=== PATIENT | male | born 1965 | race Caucasian/White ===

== ENCOUNTER 2016-12-21 11:38 | Observation (INO) ==
[2016-12-21] MEDS ORDERED: ASPIRIN 325 MG TABLET PO STA (12:10)
[2016-12-21] MEDS ORDERED: MORPHINE 2 MG/1 ML SYRINGE IV STA (12:10)
[2016-12-21] MEDS ORDERED: ONDANSETRON 4 MG/2 ML VIAL IV STA (12:10)
[2016-12-21] MEDS ORDERED: METOPROLOL TARTRATE 25 MG TABLET PO STA (12:10)
[2016-12-21] MEDS ORDERED: NITROGLYCERIN 2% OINT 1 INCH/GM PACK TOP STA (12:10)
[2016-12-21] MEDS ORDERED: ALUM/MAG/SIMETH/LIDO VISC 1:1 30 ML BOTTLE PO STA (12:10)
--- NOTE | 2016-12-21 12:14 | EKG Report ---
Stationary ECG Study [facility] ER Test Date: 12/21/2016 11:50:33 AM Pat Name: EDUAR DWYER Department: Room: 424 Gender: M [employer] Director: : 1965 Requested by: Saeed Castro Order Number: [id number] Reading MD: VERENA MEDELLIN Intervals [place] Rate: 83 P: 63 OH: 162 QRS: -21 QRSD: 124 T: 25 QT: 374 QTc: 414 Interpretive Statements SINUS RHYTHM POSSIBLE LEFT ATRIAL ENLARGEMENT BORDERLINE LEFT AXIS DEVIATION Right bundle branch block Electronically Signed On 12-22-16 20:43:31 CDT by VERENA MEDELLIN [email or web address]
[2016-12-21 12:16] LABS: Basophils # 0.1 10*3/uL (0.0-0.2); Basophils % 0.7 % (0.0-0.8); Eosinophils # 0.2 10*3/uL (0.0-0.87); Eosinophils % 2.5 % (0.00-10.9); Hematocrit 35.8 VOL% (42.0-52.0); Hemoglobin 12.8 GM/DL (14.0-18.0); Immature Granulocytes % 0.4 %; Immature Granulocytes Absolute 0.03 #; Lymphocytes # 2.1 10*3/uL (1.4-4.0); Lymphocytes % 25.7 % (21.2-54.2); Mean Corpuscular HGB Conc 35.8 GM/DL (32-36); Mean Corpuscular Hemoglobin 32 PG (27-34); Mean Corpuscular Volume 89.7 FL (87-102); Mean Platelet Volume 10.6 FL (9.6-12.0); Monocytes # 0.5 10*3/uL (0.11-0.8); Monocytes % 5.9 % (1.7-12.7); Neutrophils # 5.4 10*3/uL (1.4-7.4); Neutrophils % 64.8 % (38.7-73.9); Platelet Count 116 T/CUMM (130-400); Red Blood Count 3.99 MC/CUMM (3.8-5.5); Red Cell Distribution Width 13.2 % (9.3-17.3); White Blood Count 8.3 T/CUMM (4-12)
[2016-12-21] MEDS ORDERED: ONDANSETRON 4 MG/2 ML VIAL ONE (12:28)
[2016-12-21] MEDS ORDERED: METOPROLOL TARTRATE 25 MG TABLET ONE (12:28)
[2016-12-21] MEDS ORDERED: NITROGLYCERIN 2% OINT 1 INCH/GM PACK TOP ONE (12:28)
[2016-12-21] MEDS ORDERED: ASPIRIN 325 MG TABLET ONE (12:28)
[2016-12-21] MEDS ORDERED: MORPHINE 2 MG/1 ML SYRINGE ONE (12:28)
[2016-12-21 12:29] LABS: D-Dimer <= 0.5 MG/L FEU; PT Patient Result 10.8 SECS
[2016-12-21] MEDS ORDERED: ALUM/MAG/SIMETH/LIDO VISC 1:1 30 ML BOTTLE PO ONE (12:29)
--- NOTE | 2016-12-21 12:30 | Emergency Department Note ---
IJelly Sierra, am scribing for, and in the presence of, Saeed Ellis MD 12:16. IRhonda Charles R, MD, personally performed the services described in this documentation, ascribed by Ciarra Reaves in my presence, and it is both accurate and complete . 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 Pt reports he was bending over for a "little bit" and when he began to walk up a hill the chest pain came on and he began to sweat. Pt states he "felt weird and felt like my heart was going to beat out of my chest." Pt denies the pain radiating. He reports that he "tried burping the pain off but it was not indigestion." Pt states when he arrived at the ED and got off the stretcher from lying flat for a bit he began to feel the chest pain again. Pt denies chest pain at this time. Pt states he had a negative heart catheter done about 3 or 4 months ago at [place] for chest pain. Pt reports he has also felt fatigued the past 3 days and states his blood sugar is not being controlled at [facility] where pt is in treatment for alcohol and drug detox. Pt admits he is a smoker. Pt denies seeing a PCP for sxs. No other complaints/pain in ED. Onset (ago): day(s) Consistency: intermittent Severity: mild, moderate Severity scale (1-10): 3 Quality: sharp Allergies/Adverse Reactions: Allergies Allergy/AdvReac Type Severity Reaction Status Date / Time No Known Allergies Allergy Verified 12/19/16 21:45 Home Medications: Home Medications Medication Instructions Recorded Confirmed Type ARIPiprazole [Abilify] 5 mg PO BEDTIME 12/19/16 12/21/16 History Ciprofloxacin Tab [Cipro Tab] 500 mg PO BID #20 tablet 12/19/16 12/21/16 Rx Duloxetine HCl [Duloxetine] 60 mg PO DAILY 12/19/16 12/21/16 History Gabapentin [Gabapentin] 300 mg PO TID 12/19/16 12/21/16 History Indomethacin Cap [Indocin Cap] 25 mg PO TID #30 capsule 12/19/16 12/21/16 Rx Lisinopril 20 mg PO DAILY #30 tablet 12/19/16 12/21/16 Rx Metformin HCl 500 mg PO BID #60 tablet 12/19/16 12/21/16 Rx Multivitamin [Multivitamins] 1 each PO 0800 12/19/16 12/21/16 History Phenazopyridine HCl [Pyridium] 200 mg PO TID #30 tablet 12/19/16 12/21/16 Rx Tamsulosin [Flomax] 0.4 mg PO DAILY #30 capsule 12/19/16 12/21/16 Rx Trazodone HCl 100 mg PO BEDTIME 12/19/16 12/21/16 History Review of System - Review of System 12 point system: reviewed and no additional remarkable complaints except as stated - Review of System Constitutional: Present: diaphoresis. Absent: chills, fever Respiratory: Absent: cough Cardiovascular: Present: chest pain (no current chest pain but midsternum chest pain during epsiode) Gastrointestinal: Absent: abdominal pain, nausea, vomiting Musculoskeletal: Absent: arm pain, back pain, leg pain, neck pain Skin: Absent: rash Neurological: Absent: headache, numbness Psychiatric: Absent: anxiety Medical,Surgical,& Family Hx - Medical History Psychological: History of: Depression, Previous Suicide Attempt Endocrine: History of: Diabetes Mellitus (IDDM) Musculoskeletal: History of: Musculoskeletal Problems (spinal cord injury) - Social History Smoking Status: Unknown if ever smoked Frequency of Alcohol Use: None Type of Drug Use: None Exam Vital Signs: Vital Signs Temperature 97.4 F L 12/21/16 11:56 Pulse Rate 83 12/21/16 12:00 Respiratory Rate 20 12/21/16 12:00 Blood Pressure 137/67 12/21/16 12:00 O2 Sat by Pulse Oximetry 98 12/21/16 12:00 - General General appearance: alert, in no apparent distress, other (smells of cigarette smoke) - Head Head exam: Present: atraumatic, normocephalic - Eye Eye exam: Present: PERRL, EOMI - ENT ENT exam: Present: mucous membranes moist. Absent: mucous membranes dry - Neck Neck exam: Present: full ROM. Absent: tenderness - Chest Chest inspection: Present: symmetric chest wall rise. Absent: tenderness - Respiratory Respiratory exam: Present: rhonchi (bilateral rhonchi) - Cardiovascular Cardiovascular exam: Present: normal rhythm, tachycardia, normal heart sounds - Abdominal Exam Abdominal exam: Present: soft. Absent: tenderness - Extremities Exam Extremities exam: Present: full ROM. Absent: tenderness - Back Exam Back exam: Present: full ROM. Absent: tenderness - Neurological Exam Neurological exam: Present: alert, oriented X3, CN II-XII intact. Absent: motor sensory deficit - Psychiatric Psychiatric exam: Present: normal affect, normal mood - Skin Skin exam: Present: warm, dry Course - Consultations Consultation #1: Hospitalist will admit patient Time: 15:01 Results - Labs CBC & BMP: 12/21/16 11:58 12/21/16 11:58 Lab Results: I have reviewed the patients labs Labs: Laboratory Tests 12/21/16 11:58 Hgb 12.8 L Hct 35.8 L Plt Count 116 L Laboratory Tests 12/21/16 11:58 INR 1.0 PT Patient/Control Mix 10.8 D-Dimer, Quantitative <= 0.5 Laboratory Tests 12/21/16 12:40 Urine Color Yellow Urine Appearance Clear Urine pH 6.0 Ur Specific Carson 1.017 Urine Protein Negative Urine Glucose (UA) >=500 Urine Ketones Negative Urine Blood Large Urine Nitrate Negative Urine Bilirubin Negative Urine Urobilinogen < 2.0 H Urine Leukocytes Negative Urine RBC 162 Urine WBC 2 Urine Mucus Occasional Laboratory Tests 12/21/16 12/21/16 11:58 12:40 BUN 21 H Glucose 434 H AST 65 H ALT 131 H Globulin 3.6 H Albumin/Globulin Ratio 0.9 L Urine Opiates Screen Negative Ur Barbiturates Screen Negative Ur Phencyclidine Scrn Negative U Amphetamine/Methamph Negative U Benzodiazepines Scrn Negative U Cocaine Metab Screen Negative U Cannabinoids Screen Negative Laboratory Tests 12/21/16 11:58 Troponin I < 0.015 Laboratory Tests 12/21/16 11:58 B-Natriuretic Peptide 17 - Diagnostic Findings Procedure: Chest x-ray: report reviewed by me (1. Degenerative spondylosis changes of thoracic spine 2. No acute cardiopulmonary pathology) Disposition Clinical Impression: Chest pain, Hyperglycemia due to type 2 diabetes mellitus Case discussed with: patient Disposition: Still a Patient Condition: Stable Time of Disposition: 15:03
[2016-12-21 12:46] LABS: Apearance,Urine CLEAR (Clear); Bilirubin,Urine Negative (Negative); Blood, Urine Large mg/dL (Negative); Glucose,Urine (UA) >=500 mg/dL (Negative); Ketones,Urine Negative (Negative); Mucus,Urine Occasional /LPF (Occasional); Nitrite,Urine Negative (Negative); Protein,Urine Negative; RBC,Urine 162 /HPF (0-4); Urine Color Yellow (Yellow); Urine Specific Gravity 1.017 (1.001-1.035); Urine Urobilinogen < 2.0 EU/DL (0.2-1.0); WBC,Urine 2 /HPF (0-6)
[2016-12-21 12:51] LABS: Barbiturates Screen,Urine Negative (Negative); Benzodiazepines Screen,Urine Negative (Negative); Cannabinoid Screen,Urine Negative (Negative); Opiate Screen,Urine Negative (Negative); Phencyclidine Screen,Urine Negative (Negative)
[2016-12-21 12:51] LABS: Albumin 3.5 G/DL (3.4-5.0); Bilirubin,Total 0.5 MG/DL (0.2-1.0); Calcium 8.9 MG/DL (8.5-10.1); Magnesium 1.9 MG/DL (1.8-2.4); Osmolality,Calculated 294.8 MOS/KG (273-304); Potassium 4.4 MMOL/L (3.5-5.1); Total Protein 7.1 G/DL (6.4-8.3)
--- NOTE | 2016-12-21 13:13 | XRay Report ---
Exam: XR chest 2V Date: 12/21/2016 12:10 PM Indication: Chest pain Comparison: 07/05/2014 Technical: PA lateral Findings: The heart, lungs, mediastinum are intact. Anterolateral marginal osteophytes are present. External cardiac leads are noted. No pneumothorax. Impression: 1. Degenerative spondylosis changes of thoracic spine 2. No acute cardiopulmonary pathology PROCEDURE INTERPRETED AT [facility] DEPARTMENT OF RADIOLOGY Final Report Signed by: Dr. Oscar Gomez
[2016-12-21] MEDS ORDERED: INSULIN REGULAR 100 UNIT/ML IV STA (13:33)
[2016-12-21] MEDS ORDERED: INSULIN REGULAR 100 UNIT/ML ONE (14:00)
[2016-12-21] MEDS ORDERED: ZALEPLON 5 MG CAPSULE PO PRN (15:06)
[2016-12-21] MEDS ORDERED: DEXTROSE 50% 25 GM/50 ML VIAL IV PRN (15:06)
[2016-12-21] MEDS ORDERED: GLUCAGON 1 MG VIAL IM PRN (15:06)
[2016-12-21] MEDS ORDERED: ACETAMINOPHEN 325 MG TABLET PO PRN (15:06)
--- NOTE | 2016-12-21 15:56 | Ultrasound Report ---
Exam: US gallbladder Date:12/21/2016 1:33 PM Indication: Epigastric pain and elevated liver function test Comparison: None Findings: Liver: Approximately 21 cm. Mild heterogeneity present within the liver some slight decreased attenuation present measuring up to 1.3 cm. Gallbladder: Normal size shape and configuration without stones CBD: 4 mm proximally with dilatation up to 9.8 mm. No obvious filling defect clearly demonstrated in the bile duct however noted Pancreas: Normal size shape and configuration without abnormality Kidneys Right kidney: 13.4 x 5.2 x 5.6 cm with multiple cysts present in the right kidney measuring 3.2 x 3.8 x 3.2 cm for the largest cyst and small area in the right kidney measures approximately 1 cm Ascites: None Impression: 1. Mild dilatation of the common bile duct measuring just below 10 mm 2. No obvious intrahepatic ductal dilatation or pancreatic ductal dilatation clearly seen. 3. Mild inhomogeneity in the liver. Some focal areas of hypoechoic densities are present these could represent solid masses or cyst not otherwise clarified. Hepatomegaly is present. 4. Cystic changes of the right kidney measuring up to 3.8 cm suggesting simple cyst MRI abdomen without and with contrast/ MRCP may be beneficial for further evaluation Ultrasound images were stored and captured PROCEDURE INTERPRETED AT [facility] [place] DEPARTMENT OF RADIOLOGY Final Report Signed by: Dr. Oscar Gomez
--- NOTE | 2016-12-21 17:06 | Hospitalist History & Physical ---
Assessment and Plan (1) Chest pain Status: Acute Assessment and plan: Cardiac monitoring. Serial EKGs and troponins. BMP/CBC in am. Current Visit: Yes (2) Hyperglycemia due to type 2 diabetes mellitus Status: Acute Assessment and plan: ACHS. SSI. Current Visit: Yes History of Present Illness Chief complaint: chest pain History of present illness: Mr. Roland is a 51 year old male that presented to the ED today via EMS with c/ o midsternal pain. Pt states he bent over and then walked up a hill at which point he began to have chest pain and became sweaty. Patient states that he "felt weird and felt like my heart was going to beat out of my chest" Patient denies any pain radiating to his back or arm. In the ED now the patient is painless but did have a chest pain on arrival to ED once he got off stretcher. Patient denies numbness, tingling, vision loss, fever, chills, or shortness of breath. Patient has a past medical history of smoking, diabetes, drug addiction , depression, and hypertension. Patient states that he was seen recently at [facility] for chest pain or a heart cath was performed that he states was negative. Patient is currently residing at [facility]. Patient will be admitted to the hospital for chest pain observation Home Medications Medication Instructions Recorded Confirmed Type ARIPiprazole [Abilify] 5 mg PO BEDTIME 12/19/16 12/21/16 History Ciprofloxacin Tab [Cipro Tab] 500 mg PO BID #20 tablet 12/19/16 12/21/16 Rx Duloxetine HCl [Duloxetine] 60 mg PO DAILY 12/19/16 12/21/16 History Gabapentin [Gabapentin] 300 mg PO TID 12/19/16 12/21/16 History Indomethacin Cap [Indocin Cap] 25 mg PO TID #30 capsule 12/19/16 12/21/16 Rx Lisinopril 20 mg PO DAILY #30 tablet 12/19/16 12/21/16 Rx Metformin HCl 500 mg PO BID #60 tablet 12/19/16 12/21/16 Rx Multivitamin [Multivitamins] 1 each PO 0800 12/19/16 12/21/16 History Phenazopyridine HCl [Pyridium] 200 mg PO TID #30 tablet 12/19/16 12/21/16 Rx Tamsulosin [Flomax] 0.4 mg PO DAILY #30 capsule 12/19/16 12/21/16 Rx Trazodone HCl 100 mg PO BEDTIME 12/19/16 12/21/16 History Allergies Allergy/AdvReac Type Severity Reaction Status Date / Time No Known Allergies Allergy Verified 12/19/16 21:45 Medical,Surgical,& Family Hx - Medical History Cardio: History of: Hypertension Psychological: History of: Depression, Previous Suicide Attempt Endocrine: History of: Diabetes Mellitus (IDDM) Gastrointestinal: History of: Hepatitis (Hep C) Musculoskeletal: History of: Musculoskeletal Problems (spinal cord injury) - Social History Smoking Status: Unknown if ever smoked Frequency of Alcohol Use: None Type of Drug Use: None - Constitutional Constitutional: Absent: chills, fever(s) - EENT Eyes: Absent: loss of vision Ears: Absent: ear discharge Nose, mouth and throat: Absent: headache(s), sore throat - Cardiovascular Cardiovascular: Absent: chest pain at rest - Respiratory Respiratory: Absent: cough - Gastrointestinal Gastrointestinal: Present: nausea. Absent: abdominal pain, vomiting - Genitourinary Genitourinary: Absent: difficulty urinating - Neurological Neurological: Absent: confusion, numbness - Psychiatric Psychiatric: Present: depression Exam - Constitutional Vitals: Period Temp Pulse Resp BP Sys/Harris Pulse Ox Last 24 Hr 97.5 F 76 20 133/80 97 General appearance: normal weight, no acute distress - Head Head exam: Present: normal inspection, normocephalic - Eye Eye exam: Present: EOMI Pupils: Present: FAHAD - ENT ENT exam: Present: normal external ear exam - Neck Neck exam: Present: normal inspection - Respiratory Respiratory exam: Present: clear to auscultation bilaterally - Cardiovascular Cardiovascular exam: Present: regular rate and rhythm - GI/Abdominal GI/Abdominal exam: Present: normal bowel sounds, soft. Absent: tenderness - Extremities Exam Extremities exam: Present: normal capillary refill, full ROM. Absent: edema - Neurological Exam Neurological exam: Present: alert, oriented X3, normal gait - Psychiatric Psychiatric exam: Present: normal affect, normal mood - Skin Skin exam: Present: normal color, warm, dry Results - Labs CBC & BMP: 12/21/16 11:58 12/21/16 11:58 Lab Results: I have reviewed the past 24 hour labs
[2016-12-21] MEDS: INSULIN LISPRO 100 UNIT/ML SUBCUT SCH ×2 (17:19→21:15)
[2016-12-21] MEDS: SODIUM CHLORIDE 0.9% 1,000 ML IV SCH (17:40)
[2016-12-21 18:47] LABS: Troponin I Only < 0.015 NG/ML (0.00-0.045)
[2016-12-21] MEDS: GABAPENTIN 300 MG CAPSULE PO SCH (20:28)
[2016-12-21] MEDS: INDOMETHACIN 25 MG CAPSULE PO SCH (20:29)
[2016-12-21] MEDS: ONDANSETRON 4 MG/2 ML VIAL IV PRN (20:33)
[2016-12-21] MEDS: MORPHINE 2 MG/1 ML SYRINGE IV PRN (20:36)
[2016-12-21] MEDS ORDERED: traZODone 50 MG TABLET PO SCH (21:00)
[2016-12-21] MEDS ORDERED: ARIPiprazole 5 MG TABLET PO SCH (21:00)
[2016-12-21] MEDS ORDERED: TAMSULOSIN 0.4 MG CAPSULE PO SCH (21:00)
[2016-12-21] MEDS ORDERED: ENOXAPARIN 40 MG/0.4 ML SYRINGE SUBCUT SCH (21:00)
[2016-12-21 22:53] LABS: Troponin I Only < 0.015 NG/ML (0.00-0.045)
[2016-12-22] MEDS: SODIUM CHLORIDE 0.9% 1,000 ML IV SCH ×2 (01:40→09:27)
[2016-12-22 04:37] LABS: Troponin I Only < 0.015 NG/ML (0.00-0.045)
[2016-12-22 04:45] LABS: Calcium 8.2 MG/DL (8.5-10.1); Magnesium 2.1 MG/DL (1.8-2.4); Osmolality,Calculated 289.3 MOS/KG (273-304); Potassium 3.9 MMOL/L (3.5-5.1); Risk Ratio 3.66; Thyroid Stimulating Hormone 2.03 uIU/ml (0.358-3.74); VLDL CHOLESTEROL 21.8 MG/DL
[2016-12-22] MEDS: MORPHINE 2 MG/1 ML SYRINGE IV PRN (05:49)
[2016-12-22] MEDS: ONDANSETRON 4 MG/2 ML VIAL IV PRN (05:51)
[2016-12-22] MEDS ORDERED: MULTIVITAMIN (CENTRUM) TABLET PO SCH (08:00)
[2016-12-22] MEDS: INSULIN LISPRO 100 UNIT/ML SUBCUT SCH ×2 (08:05→12:48)
[2016-12-22] MEDS ORDERED: DULoxetine 30 MG CAPSULE PO SCH (09:00)
[2016-12-22] MEDS ORDERED: PANTOPRAZOLE 40 MG TABLET PO SCH (09:00)
[2016-12-22] MEDS ORDERED: LISINOPRIL 20 MG TABLET PO SCH (09:00)
[2016-12-22] MEDS: INDOMETHACIN 25 MG CAPSULE PO SCH (09:13)
[2016-12-22] MEDS: GABAPENTIN 300 MG CAPSULE PO SCH (09:13)
--- NOTE | 2016-12-22 10:19 | Discharge Summary ---
Hospital Course - Hospital Course Hospital Course: Mr. Roland is a 51-year-old white male that was admitted to the emergency department with chest pain. His history is significant for hypertension and illicit drug use. The patient came from [place] where he is undergoing drug rehab. He reports an episode of palpitations and chest pain that has since resolved. His cardiac enzymes have been negative 3. He is in no acute distress. He reports a recent hospitalization at [facility] where he had chest pain and underwent a nuclear stress test and left heart cath by Dr. Pryor. He did not have any angioplasty or stents placed. This was approximately 4-6 months ago. He was started on medications for blood pressure but he noted he was having low blood pressures and discontinued their use a few months ago. The patient does not have any evidence of coronary ischemia or acute myocardial infarction. He has reached maximal benefit from this hospitalization and is being discharged home. He plans to return to [place] for continued rehabilitation. His medications were reviewed and reconciled. He will be started on low-dose blood pressure medications and statin as well as baby aspirin. New scripts were given. Please see the full discharge medication reconciliation for an accurate list of his home medications. Of note the patient also reported dysuria symptoms. He states he has had this for approximately 3 years. He has been seen by Dr. Cleary and had cystoscopy in the past. I encouraged him to follow-up with urology if he still having problems. No evidence of urinary tract infection on urinalysis. - Time spent with patient Time with patient DS: Greater than 30 minutes (Total discharge time for this patient, including [id number] time, clinical documentation, medication reconciliation, and discharge planning was 37 minutes.) Diagnosis - Discharge Diagnosis (1) Chest pain Status: Resolved (2) Hyperglycemia due to type 2 diabetes mellitus Status: Chronic (3) Hypertension Status: Chronic (4) Dyslipidemia Status: Chronic Discharge Plan - Discharge Data Disposition: Disch To Home/Self Care Condition at Discharge: Stable Discharge Diet: advance to your usual diet Activity: resume usual activities as tolerated Hygiene: no restrictions Weight Bearing at Discharge: full weight bearing Driving: no restrictions Contact your physician if you experience:: fever over 101, Nausea/Vomiting, Shortness of breath, pain uncontrolled by pain medications - Discharge Medications New Pravastatin [Pravachol] 20 mg PO BEDTIME #30 tablet Continue Multivitamin [Multivitamins] 1 each PO 0800 Gabapentin 300 mg PO TID Duloxetine HCl [Duloxetine] 60 mg PO DAILY ARIPiprazole [Abilify] 5 mg PO BEDTIME Indomethacin Cap [Indocin Cap] 25 mg PO TID #30 capsule Tamsulosin [Flomax] 0.4 mg PO DAILY #30 capsule Metformin HCl 500 mg PO BID #60 tablet Trazodone HCl 100 mg PO BEDTIME Changed Lisinopril 10 mg PO DAILY #30 tablet Discontinued Phenazopyridine HCl [Pyridium] 200 mg PO TID #30 tablet Ciprofloxacin Tab [Cipro Tab] 500 mg PO BID #20 tablet - Follow Up or Referral Follow Up: Carlos Manuel Cleary MD [Physician] - - Forms/Instructions Exam - Constitutional Vitals: Period Temp Pulse Resp BP Sys/Harris Pulse Ox Last 24 Hr 97.4 F-98.4 F 76-91 16-20 130-174/67-91 97-98 Exam: Constitutional System: No distress. No tremulousness. Head: Normocephalic, atraumatic. Ears, Nose and Throat System: No pain or tenderness. No epistaxis or discharge Eyes System: Pupils equal, round, and reactive. Extraocular muscles intact. Neck: Supple, without adenopathy, No jugular venous distention. No thyromegaly, neck mass, or prior surgery apparent. Respiratory System: Chest clear to auscultation. Cardiovascular System: Heart with regular rate and rhythm. No murmur. GI System: Abdomen soft, nontender. Normo active bowel sounds present. Musculoskeletal System: limbs with no pedal edema. Full distal pulses. Neurological System: No discernable sensory deficit. No aphasia Psychiatric System: Conversation is rational Discharge Results Labs on day of discharge: Labs from last 24 hours 12/22/16 12/22/16 12/22/16 07:52 02:50 02:50 Sodium 141 Potassium 3.9 Chloride 106 Carbon Dioxide 26 Anion Gap 12.9 BUN 22 H Creatinine 0.80 GFR Calculation 21 BUN/Creatinine Ratio 27.00 H Glucose 211 H POC Glucose 295 H Calculated Osmolality 289.3 Calcium 8.2 L Magnesium 2.1 Total Creatine Kinase CK-MB (CK-2) Troponin I Triglycerides 109 Cholesterol 139 LDL Cholesterol 78.0 VLDL Cholesterol 21.8 HDL Cholesterol 38 L Heart Disease Risk Ratio 3.66 Free T4 1.09 TSH 3rd Generation 2.030 12/22/16 12/21/16 12/21/16 02:50 21:41 21:05 Sodium Potassium Chloride Carbon Dioxide Anion Gap BUN Creatinine GFR Calculation BUN/Creatinine Ratio Glucose POC Glucose 327 H Calculated Osmolality Calcium Magnesium Total Creatine Kinase 96 111 CK-MB (CK-2) 2.7 2.8 Troponin I < 0.015 < 0.015 Triglycerides Cholesterol LDL Cholesterol VLDL Cholesterol HDL Cholesterol Heart Disease Risk Ratio Free T4 TSH 3rd Generation 12/21/16 12/21/16 12/21/16 17:52 17:18 15:43 Sodium Potassium Chloride Carbon Dioxide Anion Gap BUN Creatinine GFR Calculation BUN/Creatinine Ratio Glucose POC Glucose 149 H 140 H Calculated Osmolality Calcium Magnesium Total Creatine Kinase 116 CK-MB (CK-2) 2.7 Troponin I < 0.015 Triglycerides Cholesterol LDL Cholesterol VLDL Cholesterol HDL Cholesterol Heart Disease Risk Ratio Free T4 TSH 3rd Generation DS: Provider Date of admission: 12/21/16 15:06 Primary care physician: . No PCP Attending physician on admission: Gwen Husain MD Consults: 12/21/16 16:50 Consult to Dietitian [CONS] Routine Reason for Dietitian: Other Consult Comment: admission assessment Discharging clinician: Gwen Husain MD Expected date of discharge: 12/22/16
[2016-12-22 12:40] VITALS: BP 145/85
== END 2016-12-22 14:32 | disposition home or self-care (01) ==
LOC: EDBD → EDUNIT# → N.ED 11:38 → N.EDINP 11:38 → N.4E 16:40
PROVIDERS: ADMIT Family Medicine; ATTEND Family Medicine